=== PATIENT | female | born 1965 | race Caucasian/White ===

== ENCOUNTER → 2017-01-08 | Outpatient (CLI) | payer BC ==
[~2017-01-08] MED LIST: ASP325TEC PO; CETI10CA PO; CYAN1TAB50 SL; FOLI1TAB24 PO; FURO20TA4 PO; LOSA100T16 PO; MELO-195 PO
--- OUTSIDE RECORDS SUMMARY | 2017-01-08 14:02 | XMS REPORT | Continuity of Care Document ---
Author Author [facility] Organization [facility] Address Unknown Phone Unavailable Care Team Providers Care Web Application Developer Name Role Phone BINA UMANA MD PCP Insurance Providers Payer Name Policy Number Subscriber Name Relationship [facility] [id number] Lisa Dozier 17 Self / Same As Patient Advance Directives Directive Response Recorded Date/Time Advance Directives Yes 04/08/15 8:15am Health Care Power of Customer Advocacy Manager Yes 04/08/15 8:15am Organ Donor Yes 04/08/15 8:15am Resuscitation Status Full Code 04/08/15 8:15am Problems No known problems or medical conditions. Medications Medication Dose Route Sig Days/Qty Instructions Order Date Discontinued Date Status Folic Acid 1 Mg PO DAILY 04/08/15 Active Losartan Potassium 1 Each PO DAILY 04/08/15 Active Furosemide (Lasix) 1 Each PO DAILY 04/08/15 Active Cyanocobalamin/Folic Acid 1 Each SL DAILY 04/08/15 Active Aspirin 325 Mg PO DAILY 04/08/15 Active Meloxicam (Mobic) 15 Mg PO DAILY 04/08/15 Active Cetirizine Hcl 10 Mg PO DAILY 04/08/15 Active Social History Social History Problem Response Recorded Date/Time Recent Foreign Travel No 04/08/2015 8:14am Smoking Status Never a Smoker 04/08/2015 8:13am Do you dip or chew tobacco? No 04/08/2015 8:13am Query Response Start Date Stop Date Smoking Status Never a Smoker Hospital Discharge Instructions No hospital discharge instructions. Plan of Care No plan of care. Functional Status No functional status results. Allergies, Adverse Reactions, Alerts Allergen Type Severity Reaction Status Last Updated NKDA Allergy Unknown Active 04/08/15 Immunizations Name Given Type Date of Influenza Vaccine 09/08/14 Historical Vital Signs Acute Vital Signs Vital Response Date/Time Temperature (Fahrenheit) 98.1 degrees F (97.6 - 99.5) Temperature (Calculated Celsius) 36.95829 degrees C (36.4 - 37.5) Temperature Source Tympanic Pulse Rate (adult) 87 bpm (60 - 90) Respiratory Rate 18 bpm (12 - 24) O2 Sat by Pulse Oximetry 93 % (88 - 100) Blood Pressure 132/86 mm Hg Pain Pain Intensity 0 Height (Feet) 5 feet Height (Inches) 3.00 inches Height (Calculated Centimeters) 160.705245 cm Weight (Pounds) 215 pounds Weight (Calculated Grams) 16080.361 gm Weight (Calculated Kilograms) 97.233460 kilograms Height 5 ft 3 in Weight 215 lb Body Mass Index 38.1 kg/m^2 Results No known relevant diagnostic tests, laboratory data and/or discharge summary. Procedures Procedure Status Date Provider(s) Diagnostic colonoscopy completed 04/08/15 BUSHRA SABA MD Encounters Encounter Location Date/Time [facility]istered [facility] 04/08/15 7:04am Registered Clinic [facility] 04/06/15 5:46am
--- NOTE | 2017-01-10 19:03 | Diagnostic Imaging Report ---
Bilateral screening mammogram The current study was also evaluated with a Computer Aided Detection (CAD) system. INDICATION: Screening. No current complaints stated on the questionnaire. COMPARISON: 12/08/15. FINDINGS: The breasts are composed of scattered fibroglandular densities. There are scattered benign-appearing calcifications. Allowing for technique and positional differences, no suspicious change is seen. IMPRESSION: No significant change. ACR BI-RADS Category 2: Benign findings. Result letter will be mailed to the patient. Note: At least 10% of breast cancer is not imaged by mammography. Dictated by: Dictated on workstation # [id number]
== END ==
LOC: RAD 13:59
PROVIDERS: ATTEND Nurse Practitioner Family
DX: Z12.31 Encounter for screening mammogram for malignant neoplasm of breast (principal)
CPT/HCPCS: 77067

== ENCOUNTER → 2018-01-10 | Outpatient (CLI) | payer BC | LOC: RAD 07:32 | PROVIDERS: ATTEND Nurse Practitioner Family | DX: Z12.31 Encounter for screening mammogram for malignant neoplasm of breast (principal) ==

== ENCOUNTER → 2018-08-21 | Outpatient (CLI) | payer BC ==
[~2018-08-21] MED LIST changes: +ACHD5005 PO; +ASPI325T32 PO; +DOCU-143 PO; +FEXO180T84 PO; +LOSA100T8 PO; +OMEP20TA7 PO; +SPIR25TA5 PO
--- NOTE | 2018-08-21 11:52 | Diagnostic Imaging Report ---
PROCEDURE: US Gallbladder. TECHNIQUE: Multiple real-time grayscale images were obtained over the right upper quadrant in various projections. INDICATION: Right upper quadrant pain. COMPARISON: None available. FINDINGS: The liver has diffuse increased echogenicity indicative of hepatic steatosis. Well-circumscribed anechoic structure in the posterior right hepatic lobe measures 3.7 x 2.3 x 2.5 cm and likely represents a cyst. Main portal vein is patent with antegrade flow. The gallbladder is distended without gallstones, wall thickening, or pericholecystic fluid. The common bile duct is not visualized as it is obscured by overlying bowel gas. The visualized portions of the pancreas are normal. Portions of the head and tail are obscured by overlying bowel gas. The right kidney is normal in size. No hydronephrosis, shadowing calculi, or suspicious mass lesion. IMPRESSION: 1. No cholelithiasis or sonographic features of acute cholecystitis. 2. Diffuse hepatic steatosis. Dictated by: Dictated on workstation # [id number]
== END ==
LOC: RAD 10:47
PROVIDERS: ATTEND Family Medicine
DX: K76.0 Fatty (change of) liver, not elsewhere classified (principal)
CPT/HCPCS: 76705

== ENCOUNTER → 2018-08-22 | Outpatient (CLI) | payer BC ==
[~2018-08-22] MED LIST changes: +CATHETER FLUSH 10 ML SYR IV PRN
--- NOTE | 2018-08-22 17:29 | Diagnostic Imaging Report ---
EXAMINATION: Nuclear medicine hepatobiliary scan. INDICATION: Abdominal pain. TECHNIQUE: This study was performed following administration of 5.33 mCi of Choletec. Ensure was used to calculate the ejection fraction. COMPARISON: There are no previous nuclear medicine studies available for comparison. FINDINGS: The gallbladder ultrasound exam of 08/21/2018 failed to show any sign of acute cholecystitis. On this exam, there is uptake of the radiotracer by the gallbladder before 30 minutes. This would weigh against the diagnosis of acute cholecystitis. There is also extension of the radiotracer into the small bowel indicating that the common bile duct is not obstructed. The ejection fraction is 12% (normal greater than 35%). The reason for the diminished ejection fraction is not certain. The possibility of biliary dyskinesia should be considered. IMPRESSION: 1. There is no evidence for acute cholecystitis or for obstruction of the common bile duct. 2. However, the ejection fraction is only 12% and below normal limits. Dictated by: Dictated on workstation # [id number]
== END ==
LOC: CARD 13:06
PROVIDERS: ATTEND Surgery
DX: R10.11 Right upper quadrant pain (principal)
CPT/HCPCS: 78227

== ENCOUNTER 2018-08-28 05:32 | Outpatient (CLI) | payer BC ==
[~2018-08-28] VITALS: Ht 162.6 cm; Wt 108.4 kg
[~2018-08-28 05:32] MED LIST changes: -ACHD5005 PO; -ASPI325T32 PO; -CATHETER FLUSH 10 ML SYR IV PRN; -DOCU-143 PO; -FEXO180T84 PO; -LOSA100T8 PO; -OMEP20TA7 PO; -SPIR25TA5 PO
[2018-08-28] MEDS ORDERED: FURO20TA4 PO (14:28)
[2018-08-28] MEDS ORDERED: FOLI1TAB24 PO (14:28)
[2018-08-28] MEDS ORDERED: LOSA100T8 PO (14:28)
[2018-08-28] MEDS ORDERED: OMEP20TA7 PO (14:28)
[2018-08-28] MEDS ORDERED: ASPI325T32 PO (14:28)
[2018-08-28] MEDS ORDERED: FEXO180T84 PO (14:28)
[2018-08-28] MEDS ORDERED: SPIR25TA5 PO (14:28)
[2018-09-01] MEDS ORDERED: DOCU-143 PO (11:31)
[2018-09-01] MEDS ORDERED: ACHD5005 PO (11:31)
== END 2018-08-28 14:32 | disposition home or self-care (01) ==
LOC: PREOP 05:32
PROVIDERS: ATTEND Surgery
DX: Z01.818 Encounter for other preprocedural examination (principal)

== ENCOUNTER 2018-09-01 08:43 | Day surgery (SDC) | payer BC ==
[~2018-09-01] VITALS: Ht 162.6 cm; Wt 108.4 kg
[~2018-09-01 08:43] MED LIST changes: +ASPI325T32 PO; +FEXO180T84 PO; +LOSA100T8 PO; +OMEP20TA7 PO; +SPIR25TA5 PO
[2018-09-01 09:00] VITALS: BP 152/91
[2018-09-01] MEDS: LACTATED RINGERS 1,000 ML IV PRN ×2 (09:00→11:00)
[2018-09-01] MEDS ORDERED: SEVOFLURANE (ULTANE) 15 ML INHAL SOLN ONE ×2 (09:12→11:25)
[2018-09-01] MEDS ORDERED: proPOfol 200 MG/20 ML (DIPRIVAN) VIAL IV ONE (09:12)
[2018-09-01] MEDS ORDERED: ONDANSETRON 4 MG/2 ML (SDV) Z0FRAN ONE ×3 (09:12→11:53)
[2018-09-01] MEDS ORDERED: MIDAZOLAM 2 MG/2 ML (VERSED) VIAL ONE (09:12)
[2018-09-01] MEDS ORDERED: DEXAMETHASONE 10 MG/ML (DECADRON) 1 ML VIAL ONE (09:12)
[2018-09-01] MEDS ORDERED: ROCURONIUM 10 MG/ML 5 ML SYRINGE IV ONE (09:12)
[2018-09-01] MEDS ORDERED: fentaNYL INJECTION 100 MCG/2 ML AMP ONE (09:12)
[2018-09-01] MEDS ORDERED: LIDOCAINE PF 2% 2 ML (XYLOCAINE) VIAL ONE (09:14)
[2018-09-01 09:18] LABS: BASOPHILS % (AUTO) 0 % (0-10); EOSINOPHILS # (AUTO) 0.1 10^3/uL (0.0-0.3); EOSINOPHILS % (AUTO) 1 % (0-10); HEMATOCRIT 33 % (35-52); HEMOGLOBIN 10.7 G/DL (11.5-16.0); LYMPHOCYTES # (AUTO) 2.1 X 10^3 (1.0-4.0); LYMPHOCYTES % (AUTO) 30 % (12-44); MEAN CORPUSCULAR HEMOGLOBIN 20 PG (25-34); MEAN CORPUSCULAR HGB CONC 32 G/DL (32-36); MEAN CORPUSCULAR VOLUME 63 FL (80-99); MEAN PLATELET VOLUME 11.7 FL (7.4-10.4); MONOCYTES # (AUTO) 0.5 X 10^3 (0.0-1.0); MONOCYTES % (AUTO) 7 % (0-12); NEUTROPHILS # (AUTO) 4.3 X 10^3 (1.8-7.8); NEUTROPHILS % (AUTO) 61 % (42-75); PLATELET COUNT 317 10^3/uL (130-400); RED BLOOD COUNT 5.25 10^6/uL (4.35-5.85); RED CELL DISTRIBUTION WIDTH 17.1 % (10.0-14.5)
[2018-09-01] MEDS ORDERED: ceFAZolin 2 GM IV Premixed 50 ML IV ONE (09:30)
[2018-09-01] MEDS ORDERED: FAMOTIDINE 20MG/2ML IV (PEPCID) ONE (09:33)
[2018-09-01 09:34] LABS: BUN/CREATININE RATIO 15; CALCIUM 9.7 MG/DL (8.5-10.1); CARBON DIOXIDE 22 MMOL/L (21-32); CHLORIDE 106 MMOL/L (98-107); CREATININE SERUM 0.73 MG/DL (0.60-1.30); GFR ESTIMATED > 60; GLUCOSE 101 MG/DL (70-105); POTASSIUM 4.2 MMOL/L (3.6-5.0); SODIUM 138 MMOL/L (135-145)
[2018-09-01] MEDS ORDERED: CATHETER FLUSH 10 ML SYR IV PRN (09:45)
[2018-09-01] MEDS ORDERED: BUPIVACAINE 0.5% 30 ML (SENSORCAINE) VIAL ONE (09:54)
[2018-09-01] MEDS ORDERED: LIDOCAINE 1% INJ 20 ML 20 ML VIAL ONE (09:54)
--- NOTE | 2018-09-01 10:12 | Progress Note-Pre Operative ---
Pre-Operative Progress Note H&P Reviewed The H&P was reviewed, patient examined and no changes noted. Date Seen by Provider: Sep 01, 2018 Time Seen by Provider: 10:12 Date H&P Reviewed: Sep 01, 2018 Time H&P Reviewed: 10:12 Pre-Operative Diagnosis: ruq abdominal pain, biliary dyskinesia CARLOS RAMIREZ DO Sep 01, 2018 10:12
--- OUTSIDE RECORDS SUMMARY | 2018-09-01 10:36 | XMS REPORT | CCD ---
Author Author Beverly Valerio Organization [facility] Address [address] [place] [address] Phone Care Team Providers Care Network And Threat Support Specialist Name Role Phone PP Unavailable CCM Unavailable Summary Purpose Interface Exchange Insurance Providers Payer name Policy type / Coverage type Covered constitution party ID Effective Begin Date Effective End Date Blue Cross Blue [facility] Blue Cross/Blue [facility] [id number] Unknown Family history Mother Inocencia Frias Diagnosis Age At Onset Hyperlipidemia Unknown Sister Nichole Diagnosis Age At Onset Essential Tremors Unknown Brother Alvaro Mccormack Diagnosis Age At Onset Hypertension Unknown Father Alvaro Mccormack Diagnosis Age At Onset Hypertension Unknown Social History Social History Element Codes Description Effective Dates Marital status Unknown 03/07/2016 Number of children Unknown 1 10/31/2015 Living arrangements Unknown House 10/31/[address]: 545694728 Never smoker 10/31/[address]: 429852 Currently drinks alcohol Glass of wine a couple times a month 10/31/2015 Allergies, Adverse Reactions, Alerts Substance Reaction Codes Entered Date Inactivated Date Status BE INHIBITORS cough Unknown 06/20/2015 No Inactive Date Active Past Medical History Illness Codes Condition Status Onset Date Resolved Date Gastro-esophageal reflux disease without esophagitis ICD-9: 530.81 ICD-10: K21.9 Active 08/27/2017 Unknown Other allergic rhinitis ICD-9: 477.8 ICD-10: J30.89 Active 02/06/2017 Unknown Cough ICD-9: 786.2 ICD-10: R05 Active 02/06/2017 Unknown Anemia, unspecified ICD-9: 285.9 ICD-10: D64.9 Active 03/19/2016 Unknown Essential (primary) hypertension ICD-9: 401.9 ICD-10: I10 Active 06/19/2015 Unknown Morbid (severe) obesity due to excess calories ICD-9: 278.01 ICD-10: E66.01 Active 03/06/2016 Unknown EDEMA ICD-9: 782.3 Active 07/18/2015 Unknown ESSENTIAL HYPERTENSION ICD-9: 401.9 Active 06/19/2015 Unknown GERD (gastroesophageal reflux disease) ICD-9: 530.81 Active Unknown Hypertension Unknown Active 06/20/2015 Unknown Problems Condition Codes Effective Dates Condition Status Gastro-esophageal reflux disease without esophagitis ICD-9: 530.81 ICD-10: K21.9 08/27/2017 Active Other allergic rhinitis ICD-9: 477.8 ICD-10: J30.89 02/06/2017 Active Cough ICD-9: 786.2 ICD-10: R05 02/06/2017 Active Anemia, unspecified ICD-9: 285.9 ICD-10: D64.9 03/19/2016 Active Essential (primary) hypertension ICD-9: 401.9 ICD-10: I10 06/19/2015 Active Morbid (severe) obesity due to excess calories ICD-9: 278.01 ICD-10: E66.01 03/06/2016 Active EDEMA ICD-9: 782.3 07/18/2015 Active ESSENTIAL HYPERTENSION ICD-9: 401.9 06/19/2015 Active GERD (gastroesophageal reflux disease) ICD-9: 530.81 06/19/2015 Active Hypertension Unknown 06/20/2015 Active Medications Medication Codes Instructions Start Date Stop Date Status Fill Instructions losartan 100 mg tablet RxNorm: 479853 Tablet(s) TAKE ONE (1) TABLET BY MOUTH DAILY 12/25/2017 09/20/2018 Active furosemide 20 mg tablet RxNorm: 797173 TAKE ONE TABLET BY MOUTH EVERY DAY NEEDED 12/03/2017 11/27/2018 Active Generic For:LASIX 20 MG TABLET 12/03/2017 8:37 :25 AM spironolactone 25 mg tablet RxNorm: 581165 TAKE 1 TABLET BY MOUTH EVERY MORNING 10/17/2017 05/14/2018 Active Generic For:ALDACTONE 25 MG TABLET N O T I C E Last quantity doesn't match original quantity omeprazole 20 mg tablet,delayed release RxNorm: 928700 1 Tablet(s) PO QPM 08/27/2017 03/24/2018 Active Kenalog 40 mg/mL suspension for injection RxNorm: 5048963 1 Milliliter(s) Inj 08/27/2017 08/27/2017 Inactive losartan 100 mg tablet RxNorm: 653368 Tablet(s) TAKE ONE (1) TABLET BY MOUTH DAILY 06/24/2017 12/20/2017 Inactive spironolactone 25 mg tablet RxNorm: 605290 Tablet(s) TAKE ONE TABLET BY MOUTH EVERY MORNING 04/11/2017 10/17/2017 Inactive furosemide 20 mg tablet RxNorm: 073890 TAKE ONE TABLET BY MOUTH EVERY DAY NEEDED 03/20/2017 12/02/2017 Inactive Generic For:LASIX 20 MG TABLET 03/20/2017 10 :49:21 AM folic acid 1 mg tablet RxNorm: 168745 1 Tablet(s) PO daily 03/201702/27/2018 Active folic acid 1 mg tablet RxNorm: 806220 1 Tablet(s) PO daily 01/201702/26/2018 Active Tessalon Perles 100 mg capsule RxNorm: 644795 1-2 Capsule(s) PO TID PRN as needed 02/20/2017 03/01/2017 Inactive Tessalon Perles 100 mg capsule RxNorm: 467363 1-2 Capsule(s) PO TID PRN as needed 02/15/2017 02/19/2017 Inactive cetirizine 10 mg tablet RxNorm: 2357196 1 Tablet(s) PO daily 06/05/2017 Inactive Kenalog 40 mg/mL suspension for injection RxNorm: 1812613 Milliliter(s) Inj 02/06/2017 02/06/2017 Inactive Zithromax Z-Clarence 250 mg tablet RxNorm: 312462 1 Tablet(s) PO UD 02/06/2017 04/10/2017 Inactive Tessalon Perles 100 mg capsule RxNorm: 598162 2 Capsule(s) PO TID as needed 02/06/2017 02/10/2017 Inactive cetirizine 10 mg tablet RxNorm: 8346633 1 Tablet(s) PO daily 02/05/2017 Inactive Premarin 0.625 mg/gram vaginal cream RxNorm: 725823 1 Application VAG BIW 01/15/2017 06/13/2017 Inactive Premarin 0.625 mg/gram vaginal cream RxNorm: 612905 1 Application VAG BIW 01/15/2017 06/13/2017 Inactive spironolactone 25 mg tablet RxNorm: 690492 Tablet(s) TAKE ONE TABLET BY MOUTH EVERY MORNING 12/11/2016 06/08/2017 Inactive Please fill 90 day supply for next refills spironolactone 25 mg tablet RxNorm: 688088 Tablet(s) TAKE ONE TABLET BY MOUTH EVERY MORNING 12/11/2016 12/10/2016 Inactive losartan 100 mg tablet RxNorm: 377042 Tablet(s) TAKE ONE (1) TABLET BY MOUTH DAILY 12/11/2016 06/08/2017 Inactive meloxicam 15 mg tablet RxNorm: 574504 1 Tablet(s) PO daily 11/201605/10/2017 Inactive meloxicam 15 mg tablet RxNorm: 448714 1 Tablet(s) PO daily 11/201611/11/2016 Inactive spironolactone 25 mg tablet RxNorm: 161349 TAKE ONE TABLET BY MOUTH EVERY MORNING 09/17/2016 12/10/2016 Inactive Generic For:ALDACTONE 25 MG TABLET 09/17/2016 3:10: 44 PM furosemide 20 mg tablet RxNorm: 410162 TAKE ONE TABLET BY MOUTH EVERY DAY NEEDED 06/15/2016 03/11/2017 Inactive Generic For:LASIX 20 MG TABLET 06/15/2016 4: 41:48 PM folic acid 1 mg tablet RxNorm: 894794 1 Tablet(s) PO daily 02/22/2017 Inactive spironolactone 25 mg tablet RxNorm: 582886 1 Tablet(s) PO QAM 02/08/2016 09/04/2016 Inactive losartan 100 mg tablet RxNorm: 538790 TAKE ONE (1) TABLET BY MOUTH DAILY 12/29/2015 12/10/2016 Inactive Generic For:COZAAR 100MG TAB 12/28/2015 8:39:35 AM N O T I C E PRESCRIPTION PREVIOUSLY AUTHORIZED BY DOCTOR:NIKOLAS KAUR furosemide 20 mg tablet RxNorm: 758960 TAKE ONE TABLET BY MOUTH EVERY DAY NEEDED 09/12/2015 06/07/2016 Inactive Generic For:LASIX 20 MG TABLET 09/12/2015 8: 35:33 AM N O T I C E PRESCRIPTION PREVIOUSLY AUTHORIZED BY DOCTOR:NIKOLAS KAUR Premarin 0.625 mg/gram vaginal cream RxNorm: 701450 1 Application VAG BIW 08/16/2015 08/15/2015 Inactive Premarin 0.625 mg/gram vaginal cream RxNorm: 935381 1 Application VAG BIW 08/16/2015 01/12/2016 Inactive spironolactone 25 mg tablet RxNorm: 581873 1 Tablet(s) PO QAM 07/19/2015 02/07/2016 Inactive omeprazole 20 mg tablet,delayed release RxNorm: 088000 1 Tablet(s) PO QPM 07/19/2015 10/30/2015 Inactive omeprazole 20 mg tablet,delayed release RxNorm: 040711 1 Tablet(s) PO daily 06/20/2015 07/18/2015 Inactive furosemide 20 mg tablet RxNorm: 281665 1 Tablet(s) PO daily 07/19/2015 Inactive Carafate 1 gram tablet RxNorm: 752516 1 Tablet(s) PO AC & HS 08/15/2015 Inactive dissolve in water and take as a slurry Carafate 1 gram tablet RxNorm: 520437 1 Tablet(s) PO AC & HS 06/16/2015 Inactive dissolve in water and take as a slurry aspirin 325 mg tablet RxNorm: 505813 1 Tablet(s) PO daily No Start Date Active losartan 100 mg tablet RxNorm: 060788 1 Tablet(s) PO daily No Start Date 12/28/2015 Inactive meloxicam oral RxNorm : 50445 oral No Start Date 11/12/2016 Inactive Medication Administered Medication Codes Instructions Start Date Status Kenalog 40 mg/mL suspension for injection RxNorm: 7725119 1Milliliter 08/27/2017 No longer Active Kenalog 40 mg/mL suspension for injection RxNorm: 2522047 Milliliter 02/06/2017 No longer Active Immunizations Vaccine Codes Date Status Influenza CVX: 141 09/13/2017 completed Assessments Condition Codes Effective Dates Gastro-esophageal reflux disease without esophagitis ICD-10 : K21.9 ICD-9: 530.81 08/27/2017 Other allergic rhinitis ICD-10: J30.89 ICD-9: 477.8 08/27/2017 Cough ICD-10: R05 ICD-9: 786.2 02/06/2017 Anemia, unspecified ICD-10: D64.9 ICD-9: 285.9 03/20/2016 Morbid (severe) obesity due to excess calories ICD-10: E66.01 ICD-9: 278.01 03/07/2016 Essential (primary) hypertension ICD-10: I10 ICD-9: 401.9 03/07/2016 GERD (gastroesophageal reflux disease) ICD-9: 530.81 07/19/2015 EDEMA ICD-9: 782.3 07/19/2015 ESSENTIAL HYPERTENSION ICD-9: 401.9 07/19 Reason For Visit Reason For Visit Effective Dates Notes nasal allergies 08/27/2017 sinus congestion 02/06/2017 hypertension 03/07/2016 hypertension 10/31/2015 abdominal pain 07/19/2015 abdominal pain 06/20/2015 Results Observation Observation Code Item Item Code Result Date Ferritin Ord22 FERRITIN 142.5 ng/mL 03/28/2016 Tibc Ord40 Iron 78 ug/dl 03/28/2016 Tibc Ord40 UIBC 306 ug/dL 03/28/2016 Tibc Ord40 TIBC 384 ug/dL 03/28/2016 Tibc Ord40 Fe-%Sat 20.3 % 03/28/2016 Comp Metabolic Hhm196 NA 135 mEq/L 03/08/2016 Comp Metabolic Mzy262 K 4.2 mEq/L 03/08/2016 Comp Metabolic Uii804 CL 101 mEq/L 03/08/2016 Comp Metabolic Qme400 CO2 24.0 mEq/L 03/08/2016 Comp Metabolic Xxu573 ANION GAP 14 03/08/2016 Comp Metabolic Vzd395 GLUCOSE 90 mg/dL 03/08/2016 Comp Metabolic Wmt643 Creat 0.7 mg/dL 03/08/2016 Comp Metabolic Hvu398 eGFR 100 ml/min/1.73m2 03/08/2016 Comp Metabolic Boz472 BUN 14 mg/dL 03/08/2016 Comp Metabolic Zoy085 B/C Ratio 21.2 Ratio 03/08/2016 Comp Metabolic Enm001 CALCIUM 9.8 mg/dL 03/08/2016 Comp Metabolic Fhe469 ALK PHOS 57 U/L 03/08/2016 Comp Metabolic Ilr111 AST(SGOT) 12 U/L 03/08/2016 Comp Metabolic Eez928 ALT(SGPT) 14 U/L 03/08/2016 Comp Metabolic Ine436 BILI T 0.4 mg/dL 03/08/2016 Comp Metabolic Kti324 ALBUMIN 4.3 g/dL 03/08/2016 Comp Metabolic Ypn745 TPRO 7.2 g/dL 03/08/2016 Comp Metabolic Bjt407 GLOB 2.9 g/dL 03/08/2016 Comp Metabolic Lgj015 A/G Ratio 1.5 Ratio 03/08/2016 Comp Metabolic Jpf437 Osmo 270 mOsmo 03/08/2016 Lipid Ord30 CHOL 258 mg/dL 03/08/2016 Lipid Ord30 HDL 50.0 mg/dl 03/08/2016 Lipid Ord30 TRIG 209 mg/dL 03/08/2016 Lipid Ord30 LDL 166 mg/dL 03/08/2016 Lipid Ord30 C/HDL 5.2 Ratio 03/08/2016 Tsh Ord6 hTSH II 0.86 uIU/mL 03/07/2016 Cbc With Differential Ord2 WBC 7.20 K/ul 03/07/2016 Cbc With Differential Ord2 RBC 5.07 M/ul 03/07/2016 Cbc With Differential Ord2 HGB 10.4 g/dl 03/07/2016 Cbc With Differential Ord2 HCT 32.1 % 03/07/2016 Cbc With Differential Ord2 Neut% 60.9 % 03/07/2016 Cbc With Differential Ord2 Lymph% 30.8 % 03/07/2016 Cbc With Differential Ord2 MCV 63.3 fl 03/07/2016 Cbc With Differential Ord2 Cecil% 7.2 % 03/07/2016 Cbc With Differential Ord2 MCH 20.5 pg 03/07/2016 Cbc With Differential Ord2 MCHC 32.4 pg 03/07/2016 Cbc With Differential Ord2 Eos% 1.0 % 03/07/2016 Cbc With Differential Ord2 Baso% 0.1 % 03/07/2016 Cbc With Differential Ord2 PLT 302 K/ul 03/07/2016 Cbc With Differential Ord2 Neut ABS# 4.38 K/ul 03/07/2016 Cbc With Differential Ord2 RDW 18.1 % 03/07/2016 Cbc With Differential Ord2 Lymph ABS# 2.22 K/ul 03/07/2016 Cbc With Differential Ord2 Cecil ABS# 0.5 K/ul 03/07/2016 Cbc With Differential Ord2 Eos ABS# 0.1 K/ul 03/07/2016 Cbc With Differential Ord2 Baso ABS# 0.0 K/ul 03/07/2016 Cbc With Differential Ord2 New Analyzer Notice Please note new ref ranges starting 12-14-2015 due to implemntation of new five part differential hematolgy analyzer. 03/07/2016 Review of Systems System Result Effective Dates Constitutional recent illness 08/27/2017 Constitutional No chills 08/27/2017 Constitutional No diaphoresis 08/27/2017 Constitutional No fever 08/27/2017 Eyes No blindness 08/27/2017 Ears/Nose/Throat/Neck nasal allergies Ears/Nose/Throat/Neck nasal discharge Ears/Nose/Throat/Neck postnasal drip Ears/Nose/Throat/Neck No sore throat Cardiovascular No chest pain/pressure Cardiovascular No dyspnea 08/27/2017 Respiratory No chest congestion 2016 Respiratory cough 08/27/2017 Respiratory No dyspnea 08/27/2017 Gastrointestinal No constipation 2016 Gastrointestinal No diarrhea 08/27/2017 Gastrointestinal No nausea 08/27/2017 Gastrointestinal No vomiting 08/27/2017 Dermatologic No rash 08/27/2017 Neurologic No alteration of consciousness 08/27/2017 Neurologic No mental status change 2016 Constitutional No anorexia 08/27/2017 Constitutional No night sweats 2016 Gastrointestinal gastroesophageal reflux 08/27/2017 Constitutional recent illness 02/06/2017 Constitutional No chills 02/06/2017 Constitutional No diaphoresis 02/06/2017 Constitutional No fever 02/06/2017 Eyes No eye erythema 02/06/2017 Ears/Nose/Throat/Neck nasal allergies 07/2017 Ears/Nose/Throat/Neck nasal discharge 07/2017 Ears/Nose/Throat/Neck postnasal drip 07/2017 Ears/Nose/Throat/Neck sore throat 2016 Cardiovascular No chest pain/pressure 07/2017 Cardiovascular No dyspnea 02/06/2017 Respiratory No chest congestion 2016 Respiratory cough 02/06/2017 Respiratory No dyspnea 02/06/2017 Gastrointestinal No constipation 2016 Gastrointestinal No diarrhea 02/06/2017 Gastrointestinal No nausea 02/06/2017 Gastrointestinal No vomiting 02/06/2017 Dermatologic No rash 02/06/2017 Neurologic No alteration of consciousness 02/06/2017 Neurologic No mental status change 2016 Constitutional No recent illness 2015 Constitutional No chills 03/07/2016 Constitutional No fatigue 03/07/2016 Constitutional No fever 03/07/2016 Cardiovascular No chest pain/pressure 05/2016 Cardiovascular No near-syncope/dizziness 03/07/2016 Cardiovascular No palpitations 2015 Respiratory No chest congestion 2015 Respiratory No cough 03/07/2016 Gastrointestinal No abdominal pain 2015 Musculoskeletal No stiffness 03/07/2016 Musculoskeletal No swelling 03/07/2016 Musculoskeletal No muscle weakness 2015 Musculoskeletal No myalgias 03/07/2016 Psychiatric No anxiety 03/07/2016 Psychiatric No depression 03/07/2016 Ears/Nose/Throat/Neck No dizziness 2015 Ears/Nose/Throat/Neck No headache 2015 Gastrointestinal No constipation 2015 Gastrointestinal No diarrhea 03/07/2016 Gastrointestinal No nausea 03/07/2016 Gastrointestinal No vomiting 03/07/2016 Genitourinary/Nephrology No dysuria 03/07 Dermatologic No rash 03/07/2016 Dermatologic No scar 03/07/2016 Neurologic No alteration of consciousness 03/07/2016 Eyes No blindness 03/07/2016 Eyes No vision change 03/07/2016 Constitutional No recent illness 2014 Constitutional No chills 10/31/2015 Constitutional No fatigue 10/31/2015 Constitutional No fever 10/31/2015 Cardiovascular No chest pain/pressure Cardiovascular No near-syncope/dizziness 10/31/2015 Cardiovascular No palpitations 2014 Respiratory No chest congestion 2014 Respiratory No cough 10/31/2015 Musculoskeletal No stiffness 10/31/2015 Musculoskeletal No swelling 10/31/2015 Musculoskeletal No muscle weakness 2014 Musculoskeletal No myalgias 10/31/2015 Psychiatric No anxiety 10/31/2015 Psychiatric No depression 10/31/2015 Gastrointestinal No abdominal pain 2014 Constitutional No chills 07/19/2015 Constitutional No fatigue 07/19/2015 Constitutional No fever 07/19/2015 Constitutional No recent illness 2014 Ears/Nose/Throat/Neck No dizziness 2014 Ears/Nose/Throat/Neck No headache 2014 Cardiovascular No chest pain/pressure Cardiovascular No near-syncope/dizziness 07/19/2015 Cardiovascular No palpitations 2014 Respiratory No chest congestion 2014 Respiratory No cough 07/19/2015 Gastrointestinal No abdominal pain 2014 Gastrointestinal No constipation 2014 Gastrointestinal No diarrhea 07/19/2015 Gastrointestinal No nausea 07/19/2015 Gastrointestinal No vomiting 07/19/2015 Genitourinary/Nephrology No dysuria 07/19 Neurologic No alteration of consciousness 07/19/2015 Psychiatric No anxiety 07/19/2015 Psychiatric No depression 07/19/2015 Musculoskeletal No stiffness 07/19/2015 Musculoskeletal No swelling 07/19/2015 Musculoskeletal No muscle weakness 2014 Musculoskeletal No myalgias 07/19/2015 Dermatologic No rash 07/19/2015 Dermatologic No scar 07/19/2015 Constitutional No recent illness 2014 Constitutional No anorexia 06/20/2015 Constitutional night sweats 06/20/2015 Constitutional No chills 06/20/2015 Constitutional No diaphoresis 06/20/2015 Constitutional No insomnia 06/20/2015 Eyes No vision change 06/20/2015 Eyes No eye discharge 06/20/2015 Eyes No photophobia 06/20/2015 Ears/Nose/Throat/Neck No dizziness 2014 Ears/Nose/Throat/Neck No headache 2014 Ears/Nose/Throat/Neck No hoarseness 06/20 Ears/Nose/Throat/Neck No nasal allergies 06/20/2015 Ears/Nose/Throat/Neck No nasal discharge 06/20/2015 Ears/Nose/Throat/Neck No otalgia 2014 Ears/Nose/Throat/Neck No sinus congestion 06/20/2015 Eyes cataract 06/20/2015 Cardiovascular No chest pain/pressure Cardiovascular No dyspnea 06/20/2015 Respiratory No chest congestion 2014 Respiratory No chest tightness 2014 Respiratory No cough 06/20/2015 Respiratory No cigarette smoking 2014 Gastrointestinal abdominal pain 2014 Gastrointestinal No constipation 2014 Gastrointestinal No diarrhea 06/20/2015 Genitourinary/Nephrology No dysuria 06/20 Genitourinary/Nephrology No hematuria Musculoskeletal back pain 06/20/2015 Musculoskeletal stiffness 06/20/2015 Musculoskeletal swelling 06/20/2015 Dermatologic No rash 06/20/2015 Dermatologic No sores 06/20/2015 Neurologic No dizziness 06/20/2015 Psychiatric No anxiety 06/20/2015 Psychiatric No depression 06/20/2015 Physical Exam Exam Name System Name Item Name Status Result Effective Dates Notes Full Exam - ENT Constitutional general appearance Overall: well nourished 08/27/2017 None Full Exam - ENT Constitutional general appearance Overall: well developed 08/27/2017 None Full Exam - ENT Constitutional general appearance Overall: in no acute distress 08/27/2017 None Full Exam - ENT Ears/Nose/Throat otoscopic exam Overall: external auditory canals normal 08/27/2017 None Full Exam - ENT Ears/Nose/Throat lips/ teeth/gingiva Overall: benign lips 08/27/2017 None Full Exam - ENT Ears/Nose/Throat oropharynx Overall: oral mucosa clear 08/27/2017 None Full Exam - ENT Ears/Nose/Throat oropharynx Posterior Pharynx: clear post nasal drainage 08/27/2017 None Full Exam - ENT Respiratory inspection Overall: no retractions 08/27/2017 None Full Exam - ENT Respiratory inspection Overall: normal rate None Full Exam - ENT Respiratory auscultation Overall: breath sounds clear bilaterally 08/27/2017 None Full Exam - ENT Cardiovascular auscultation of heart Rate: normal rate 08/27/2017 None Full Exam - ENT Cardiovascular auscultation of heart Rhythm: regular rhythm 08/27/2017 None Full Exam - ENT Lymphatic palpation of lymph nodes Overall: anterior cervical chain benign 08/27/2017 None Full Exam - ENT Lymphatic palpation of lymph nodes Overall: posterior cervical chain benign 08/27/2017 None Full Exam - ENT Neurologic mood and affect Overall: normal mood 08/27/2017 None Full Exam - ENT Neurologic mood and affect Overall: normal affect 08/27/2017 None Full Exam - ENT Neurologic orientation Overall: oriented to person, place and time 08/27/2017 None Full Exam - ENT Ears/Nose/Throat otoscopic exam Left tympanic membrane: air -fluid level 08/27/2017 None Full Exam - ENT Ears/Nose/Throat otoscopic exam Right tympanic membrane: air-fluid level 08/27/2017 None Full Exam - ENT Constitutional general appearance Overall: well nourished 02/06/2017 None Full Exam - ENT Constitutional general appearance Overall: well developed 02/06/2017 None Full Exam - ENT Constitutional general appearance Overall: in no acute distress 02/06/2017 None Full Exam - ENT Ears/Nose/Throat otoscopic exam Overall: external auditory canals normal 02/06/2017 None Full Exam - ENT Ears/Nose/Throat lips/ teeth/gingiva Overall: benign lips 02/06/2017 None Full Exam - ENT Ears/Nose/Throat oropharynx Overall: oral mucosa clear 02/06/2017 None Full Exam - ENT Ears/Nose/Throat oropharynx Posterior Pharynx: clear post nasal drainage 02/06/2017 None Full Exam - ENT Respiratory inspection Overall: no retractions 02/06/2017 None Full Exam - ENT Respiratory inspection Overall: normal rate 07/2017 None Full Exam - ENT Respiratory auscultation Overall: breath sounds clear bilaterally 02/06/2017 None Full Exam - ENT Cardiovascular auscultation of heart Rate: normal rate 02/06/2017 None Full Exam - ENT Cardiovascular auscultation of heart Rhythm: regular rhythm 02/06/2017 None Full Exam - ENT Lymphatic palpation of lymph nodes Overall: anterior cervical chain benign 02/06/2017 None Full Exam - ENT Lymphatic palpation of lymph nodes Overall: posterior cervical chain benign 02/06/2017 None Full Exam - ENT Neurologic mood and affect Overall: normal mood 02/06/2017 None Full Exam - ENT Neurologic mood and affect Overall: normal affect 02/06/2017 None Full Exam - ENT Neurologic orientation Overall: oriented to person, place and time 02/06/2017 None Full Exam - ENT Ears/Nose/Throat otoscopic exam Overall: tympanic membranes normal 02/06/2017 None Full Exam - General 1994 Constitutional general appearance Development: appears stated age 0403/07/2016 None Full Exam - General 1994 Constitutional general appearance Development: well developed 03/07/2016 None Full Exam - General 1994 Constitutional general appearance Hygiene/Attention to Grooming: good hygiene 03/07/2016 None Full Exam - General 1994 Eyes conjunctiva /eyelids Overall: conjunctiva clear 03/07/2016 None Full Exam - General 1994 Eyes conjunctiva /eyelids Overall: cornea clear 03/07/2016 None Full Exam - General 1994 Eyes conjunctiva /eyelids Overall: eyelids normal 03/07/2016 None Full Exam - General 1994 Eyes pupils and irises Overall: pupils equal, round, reactive to light and accomodation 03/07/2016 None Full Exam - General 1994 Ears/Nose/Throat otoscopic exam Overall: external auditory canals clear 03/07/2016 None Full Exam - General 1994 Ears/Nose/Throat otoscopic exam Overall: tympanic membranes clear 03/07/2016 None Full Exam - General 1994 Ears/Nose/Throat lips/teeth/gingiva Overall: benign lips 03/07/2016 None Full Exam - General 1994 Ears/Nose/Throat lips/teeth/gingiva Overall: normal dentition 03/07/2016 None Full Exam - General 1994 Ears/Nose/Throat oral cavity/pharynx/larynx Overall: hypopharynx benign 03/07/2016 None Full Exam - General 1994 Ears/Nose/Throat oral cavity/pharynx/larynx Overall: no masses 03/07/2016 None Full Exam - General 1994 Ears/Nose/Throat oral cavity/pharynx/larynx Overall: oral mucosa clear 03/07/2016 None Full Exam - General 1994 Ears/Nose/Throat oral cavity/pharynx/larynx Overall: oropharyngeal mucosa clear 03/07/2016 None Full Exam - General 1994 Respiratory auscultation Overall: breath sounds clear bilaterally 03/07/2016 None Full Exam - General 1994 Respiratory respiratory effort/rhythm Overall: no retractions 03/07/2016 None Full Exam - General 1994 Respiratory respiratory effort/rhythm Overall: normal rate 03/07/2016 None Full Exam - General 1994 Cardiovascular extremities Overall: no clubbing 03/07/2016 None Full Exam - General 1994 Cardiovascular auscultation of heart Overall: normal heart sounds 03/07/2016 None Full Exam - General 1994 Cardiovascular auscultation of heart Overall: regular rate 03/07/2016 None Full Exam - General 1994 Abdomen abdominal exam Overall: no tenderness 03/07/2016 None Full Exam - General 1994 Abdomen abdominal exam Overall: normal bowel sounds 03/07/2016 None Full Exam - General 1994 Integument inspection of skin Overall: few scattered moles, no gross abnormalities 03/07/2016 None Full Exam - General 1994 Neurologic deep tendon reflexes Overall: deep tendon reflexes intact 03/07/2016 None Full Exam - General 1994 Neurologic cranial nerves Overall: crainial nerves 2 - 12 grossly intact 03/07/2016 None Full Exam - General 1994 Psychiatric orientation/consciousness Overall: oriented to person, place and time 03/07/2016 None Full Exam - General 1994 Psychiatric mood and affect Overall: normal mood and affect 03/07/2016 None Full Exam - General 1994 Lymphatic neck nodes Overall: anterior cervical chain benign 03/07/2016 None Full Exam - General 1994 Lymphatic neck nodes Overall: posterior cervical chain benign 03/07/2016 None Full Exam - General 1994 Constitutional general appearance Development: appears stated age 1110/31/2015 None Full Exam - General 1994 Constitutional general appearance Development: well developed 10/31/2015 None Full Exam - General 1994 Constitutional general appearance Hygiene/Attention to Grooming: good hygiene 10/31/2015 None Full Exam - General 1994 Eyes pupils and irises Overall: pupils equal, round, reactive to light and accomodation 10/31/2015 None Full Exam - General 1994 Ears/Nose/Throat oral cavity/pharynx/larynx Overall: oral mucosa clear 10/31/2015 None Full Exam - General 1994 Ears/Nose/Throat oral cavity/pharynx/larynx Overall: oropharyngeal mucosa clear 10/31/2015 None Full Exam - General 1994 Respiratory auscultation Overall: breath sounds clear bilaterally 10/31/2015 None Full Exam - General 1994 Respiratory respiratory effort/rhythm Overall: no retractions 10/31/2015 None Full Exam - General 1994 Respiratory respiratory effort/rhythm Overall: normal rate 10/31/2015 None Full Exam - General 1994 Cardiovascular extremities Overall: no clubbing 10/31/2015 None Full Exam - General 1994 Cardiovascular auscultation of heart Overall: normal heart sounds 10/31/2015 None Full Exam - General 1994 Cardiovascular auscultation of heart Overall: regular rate 10/31/2015 None Full Exam - General 1994 Psychiatric orientation/consciousness Overall: oriented to person, place and time 10/31/2015 None Full Exam - General 1994 Psychiatric mood and affect Overall: normal mood and affect 10/31/2015 None Full Exam - Cardiology Constitutional general appearance Overall: well nourished 07/19/2015 None Full Exam - Cardiology Constitutional general appearance Overall: well developed 07/19/2015 None Full Exam - Cardiology Constitutional general appearance Overall: in no acute distress 07/19/2015 None Full Exam - Cardiology Eyes conjunctiva/ eyelids Overall: conjunctiva clear 07/19/2015 None Full Exam - Cardiology Ears/Nose/Throat oral mucosa Overall: oral mucosa clear 07/19/2015 None Full Exam - Cardiology Respiratory respiratory effort/rhythm Overall: no retractions 07/19/2015 None Full Exam - Cardiology Respiratory respiratory effort/rhythm Overall: normal rate 07/19/2015 None Full Exam - Cardiology Respiratory auscultation Overall: breath sounds clear bilaterally 07/19/2015 None Full Exam - Cardiology Cardiovascular auscultation of heart Overall: regular rate 07/19/2015 None Full Exam - Cardiology Cardiovascular auscultation of heart Overall: normal heart sounds 07/19/2015 None Full Exam - Cardiology Cardiovascular auscultation of heart Overall: no murmurs 07/19/2015 None Full Exam - Cardiology Cardiovascular extremities Overall: without clubbing, cyanosis, or edema 07/19/2015 None Full Exam - Cardiology Abdomen abdominal exam Overall: normal bowel sounds 07/19/2015 None Full Exam - Cardiology Neurologic deep tendon reflexes Overall: deep tendon reflexes intact 07/19/2015 None Full Exam - Cardiology Neurologic cranial nerves Overall: cranial nerves 1- 12 intact 07/19/2015 None Full Exam - Cardiology Psychiatric orientation/consciousness Overall: oriented to person, place and time 07/19/2015 None Full Exam - Cardiology Musculoskeletal back Overall: good posture 07/19/2015 None Full Exam - Cardiology Musculoskeletal back Overall: spine benign 07/19/2015 None Full Exam - Cardiology Integument inspection/palpation Overall: no rash, lesions 07/19/2015 None Full Exam - General 1994 Psychiatric orientation/consciousness Overall: oriented to person, place and time 06/20/2015 None Full Exam - General 1994 Psychiatric mood and affect Overall: normal mood and affect 06/20/2015 None Full Exam - General 1994 Psychiatric appearance Overall: well-groomed, good eye contact 06/20/2015 None Full Exam - General 1994 Psychiatric speech Overall: normal quality, no aphasia 06/20/2015 None Full Exam - General 1994 Neurologic gait Overall: no ataxia, no unsteadiness 06/20/2015 None Full Exam - General 1994 Neurologic coordination Overall: no tremors 06/20/2015 None Full Exam - General 1994 Neurologic motor Overall: normal bulk, tone 06/20/2015 None Full Exam - General 1994 Integument inspection of skin Overall: no rash, lesions 06/20/2015 None Full Exam - General 1994 Integument inspection of skin Overall: few scattered moles, no gross abnormalities 06/20/2015 None Full Exam - General 1994 Musculoskeletal head and neck Overall: head atraumatic 06/20/2015 None Full Exam - General 1994 Musculoskeletal head and neck Overall: TMJ benign 06/20/2015 None Full Exam - General 1994 Musculoskeletal head and neck Overall: cervical spine benign 06/20/2015 None Full Exam - General 1994 Musculoskeletal gait and station Overall: normal gait 06/20/2015 None Full Exam - General 1994 Musculoskeletal gait and station Overall: normal station 06/20/2015 None Full Exam - General 1994 Musculoskeletal digits and nails Nails: a normal exam 06/20/2015 None Full Exam - General 1994 Musculoskeletal upper extremity Overall: normal shoulder 06/20/2015 None Full Exam - General 1994 Musculoskeletal upper extremity Overall: normal elbow 06/20/2015 None Full Exam - General 1994 Musculoskeletal upper extremity Overall: normal wrist 06/20/2015 None Full Exam - General 1994 Musculoskeletal lower extremity Overall: knee benign 06/20/2015 None Full Exam - General 1994 Musculoskeletal lower extremity Overall: ankle benign 06/20/2015 None Full Exam - General 1994 Musculoskeletal lower extremity Overall: foot benign 06/20/2015 None Full Exam - General 1994 Musculoskeletal spine, ribs and pelvis Overall: good posture 06/20/2015 None Full Exam - General 1994 Lymphatic neck nodes Overall: anterior cervical chain benign 06/20/2015 None Full Exam - General 1994 Lymphatic neck nodes Overall: posterior cervical chain benign 06/20/2015 None Full Exam - General 1994 Abdomen abdominal exam Overall: normal bowel sounds 06/20/2015 None Full Exam - General 1994 Abdomen abdominal exam Percussion: a normal exam 06/20/2015 None Full Exam - General 1994 Abdomen abdominal exam Epigastric: tender to palpation 06/20/2015 None Full Exam - General 1994 Abdomen abdominal exam Upper quadrant: non-tender to palpation 06/20/2015 None Full Exam - General 1994 Abdomen abdominal exam Lower quadrant: non-tender to palpation 06/20/2015 None Full Exam - General 1994 Abdomen abdominal exam Suprapubic: non-tender to palpation 06/20/2015 None Full Exam - General 1994 Abdomen abdominal exam Periumbilical: non-tender to palpation 06/20/2015 None Full Exam - General 1994 Cardiovascular extremities Overall: no clubbing 06/20/2015 None Full Exam - General 1994 Cardiovascular auscultation of heart Overall: regular rate 06/20/2015 None Full Exam - General 1994 Cardiovascular auscultation of heart Overall: normal heart sounds 06/20/2015 None Full Exam - General 1994 Respiratory respiratory effort/rhythm Overall: no retractions 06/20/2015 None Full Exam - General 1994 Respiratory respiratory effort/rhythm Overall: normal rate 06/20/2015 None Full Exam - General 1994 Respiratory auscultation Overall: breath sounds clear bilaterally 06/20/2015 None Full Exam - General 1994 Neck inspection of neck Overall: normal size 06/20/2015 None Full Exam - General 1994 Neck inspection of neck Overall: normal appearance 06/20/2015 None Full Exam - General 1994 Neck inspection of neck Overall: absence of swelling 06/20/2015 None Full Exam - General 1994 Neck inspection of neck Overall: no masses 06/20/2015 None Full Exam - General 1994 Ears/Nose/Throat lips/teeth/gingiva Overall: benign lips 06/20/2015 None Full Exam - General 1994 Ears/Nose/Throat lips/teeth/gingiva Overall: normal dentition 06/20/2015 None Full Exam - General 1994 Ears/Nose/Throat lips/teeth/gingiva Overall: benign gingiva 06/20/2015 None Full Exam - General 1994 Ears/Nose/Throat lips/teeth/gingiva Overall: no masses 06/20/2015 None Full Exam - General 1994 Constitutional general appearance Development: well developed 06/20/2015 None Full Exam - General 1994 Constitutional general appearance Development: appears stated age 0706/20/2015 None Full Exam - General 1994 Constitutional general appearance Stature/Body Habitus: normal body habitus 06/20/2015 None Full Exam - General 1994 Constitutional general appearance Nourishment: well nourished 06/20/2015 None Full Exam - General 1994 Constitutional general appearance Evidence of Distress: in no acute distress 06/20/2015 None Full Exam - General 1994 Constitutional general appearance Hygiene/Attention to Grooming: good hygiene 06/20/2015 None Full Exam - General 1994 Constitutional general appearance Hygiene/Attention to Grooming: normal grooming 06/20/2015 None Procedures Procedure Codes Date TRIAMCINOLONE ACET INJ NOS CPT-4: J3301 08/27/2017 TRIAMCINOLONE ACET INJ NOS CPT-4: J3301 02/06/2017 Vital Signs Date Vital 08/27/2017 Blood Pressure 1: 152/90 Code : 8480-6 BMI: 41.3 Code : 85415-5 Heart Rate 1 : 84 bpm Height: 5'4" SpO2: 95% Weight: 240 lbs 8 oz 02/06/2017 Blood Pressure 1: 126/74 Code : 8480-6 BMI: 37.8 Code : 20598-4 Heart Rate 1 : 74 bpm Height: 5'4" SpO2: 98% Weight: 220 lbs 03/07/2016 Blood Pressure 1: 132/76 Code : 8480-6 BMI: 38.3 Code : 27891-0 Heart Rate 1 : 84 bpm Height: 5'4" SpO2: 98% Weight: 223 lbs 10/31/2015 Blood Pressure 1: 158/90 Code : 8480-6 Blood Pressure 1: 140/86 Code: 8480-6 BMI: 37.9 Code: 84977-9 Heart Rate 1: 93 bpm Height: 5'4" SpO2: 99% Weight: 221 lbs 07/19/2015 Blood Pressure 1: 156/90 Code : 8480-6 BMI: 38.3 Code : 46206-9 Heart Rate 1 : 77 bpm Height: 5'4" SpO2: 97% Weight: 223 lbs 06/20/2015 Blood Pressure 1: 154/90 Code : 8480-6 BMI: 38.4 Code : 32886-8 Heart Rate 1 : 80 bpm Height: 5'4" Weight: 224 lbs Functional Status No Functional Status data History of Present Illness Symptom Name Status Result Effective Date Notes nasal allergies Location in both nares 08/27/2017 None nasal allergies Onset and Resolution ongoing 08/27/2017 None nasal allergies Onset of Symptom during adulthood 08/27/2017 None nasal allergies Severity mild 08/27/2017 None nasal allergies Pertinent Findings cough 08/27/2017 None nasal allergies Pertinent Findings Denies fever 08/27/2017 None nasal allergies Pertinent Findings hoarseness 08/27/2017 None nasal allergies Frequency of Episodes increasing 08/27/2017 None nasal allergies Significant Medications antihistamines 08/27/2017 None sinus congestion Location on both sides 02/06/2017 None sinus congestion Quality fullness 02/06/2017 None sinus congestion Quality pressure 02/06/2017 None sinus congestion Onset and Resolution sudden in onset 02/06/2017 None sinus congestion Onset of Symptom 4 days ago 02/06/2017 None sinus congestion Frequency of Episodes daily 02/06/2017 None sinus congestion Pertinent Findings cough 02/06/2017 None sinus congestion Pertinent Findings hoarseness 02/06/2017 None cough Location in the throat 02/06/2017 None cough Quality constant 02/06/2017 None cough Quality hacking 02/06/2017 None cough Onset and Resolution sudden in onset 02/06/2017 None cough Onset of Symptom 4 days ago 02/06/2017 None cough Frequency of Episodes daily 02/06/2017 None hypertension Quality chronic 03/07/2016 None hypertension Onset and Resolution ongoing 03/07/2016 None hypertension Onset of Symptom during adulthood 03/07/2016 None hypertension Alleviating Factors medication 03/07/2016 None hypertension Exacerbating Factors stress 03/07/2016 None hypertension Pertinent Findings Denies dizziness 03/07/2016 None hypertension Pertinent Findings Denies dyspnea 03/07/2016 None hypertension Blood Pressure Values patient checking blood pressure at home - did not bring in readings 03/07/2016 None hypertension Quality stable 03/07/2016 None hypertension Pertinent Findings edema 03/07/2016 -normal for her hypertension Quality chronic 10/31/2015 None hypertension Onset and Resolution ongoing 10/31/2015 None hypertension Onset of Symptom during adulthood 10/31/2015 None hypertension Alleviating Factors medication 10/31/2015 None hypertension Exacerbating Factors change in dietary habits 10/31/2015 None hypertension Exacerbating Factors stress 10/31/2015 None hypertension Blood Pressure Values pt checking blood pressure - see scanned document 10/31/2015 None hypertension Pertinent Findings Denies dizziness 10/31/2015 None hypertension Pertinent Findings Denies dyspnea 10/31/2015 None abdominal pain Location in the epigastric area 07/19/2015 - has improved - with the carafate and omeprazole - and stopping the meloxicam has helpd as well - she is currently taking aspirin and has not been taking the coated aspirin - abdominal pain Quality acute 07/19/2015 None abdominal pain Quality burning 07/19/2015 None abdominal pain Onset and Resolution sudden in onset 07/19/2015 None abdominal pain Onset of Symptom 2 months ago 07/19/2015 None abdominal pain Limitation on Activities moderately limits activities 07/19/2015 None abdominal pain Frequency of Episodes increasing 07/19/2015 None abdominal pain Timing of Episodes all day long 07/19/2015 None abdominal pain Alleviating Factors proton pump inhibitor 07/19/2015 None abdominal pain Alleviating Factors medication 07/19/2015 None hypertension Onset and Resolution ongoing 07/19/2015 None hypertension Onset of Symptom during adulthood 07/19/2015 None hypertension Quality chronic 07/19/2015 None hypertension Alleviating Factors medication 07/19/2015 None hypertension Exacerbating Factors stress 07/19/2015 None hypertension Exacerbating Factors change in dietary habits 07/19/2015 None abdominal pain Location in the epigastric area 06/20/2015 None abdominal pain Quality acute 06/20/2015 None abdominal pain Quality burning 06/20/2015 None abdominal pain Onset and Resolution sudden in onset 06/20/2015 None abdominal pain Onset of Symptom 2 months ago 06/20/2015 None abdominal pain Limitation on Activities moderately limits activities 06/20/2015 None abdominal pain Frequency of Episodes increasing 06/20/2015 None abdominal pain Timing of Episodes all day long 06/20/2015 None abdominal pain Alleviating Factors proton pump inhibitor 06/20/2015 None abdominal pain Alleviating Factors medication 06/20/2015 None Advance Directives No Advance Directive data Encounters Encounter Performer Location Codes Date ([id number]) [id number] EST. PATIENT, LEVEL III Diagnosis: Other allergic rhinitis[ICD10: J30.89] Diagnosis: Gastro-esophageal reflux disease without esophagitis[ICD10: K21.9] Maira Inman MD, [facility] CPT-4: 46055 08/27/2017 [id number] EST. PATIENT, LEVEL III Diagnosis: Other allergic rhinitis[ICD10: J30.89] Diagnosis: Cough[ICD10: R05] Amena Inman MD, [facility] CPT-4: 79480 02/06/2017 ([id number]) [id number] EST. PATIENT, LEVEL IV Diagnosis: Essential (primary) hypertension[ICD10: I10] Diagnosis: Morbid (severe) obesity due to excess calories[ICD10: E66.01] [facility] CPT-4: 12822 03/07/2016 ([id number]) 52065 EST. PATIENT, LEVEL III Diagnosis: Essential (primary) hypertension[ICD10: I10] Sharon Inman MD, [facility] CPT-4: 94101 10/31/2015 ([id number]) 77294 EST. PATIENT, LEVEL IV Diagnosis: ESSENTIAL HYPERTENSION[ICD9: 401.9] Diagnosis: GERD (gastroesophageal reflux disease)[ICD9: 530.81] Diagnosis: EDEMA[ICD9: 782.3] [facility] CPT-4: 36388 07/19/2015 ([id number]) OFFICE VISIT, NEW - LEVEL 3 Diagnosis: GERD (gastroesophageal reflux disease)[ICD9: 530.81] Diagnosis: ESSENTIAL HYPERTENSION[ICD9: 401.9] [facility] CPT-4: 70370 06/20/2015 Plan of Care Planned Activity Notes Codes Status Date Appointment: Maira Tapia WPtel: [facility]0 [facility] [address] [place] (15 min) Moderate 08/27/2017 Patient Education: Patient Medication Summary Completed 08/27/2017 Patient Education: Obesity Completed 08/27/2017 Appointment: [phone] [facility] [place] [place] (15 min) Moderate 02/06/2017 Patient Education: Patient Medication Summary Completed 02/06/2017 Patient Education: Patient Medication Summary Completed 03/20/2016 Patient Education: Patient Medication Summary Completed 03/07/2016 Patient Education: Obesity Completed 03/07/2016 Patient Education: Hypertension Completed 03/07/2016 Appointment: [phone] [place] [place] (15 min) Moderate 02/27/2016 Appointment: [phone] [facility] [place] [place] (15 min) Moderate 10/31/2015 Patient Education: Patient Medication Summary Completed 10/31/2015 Patient Education: Hypertension Completed 10/31/2015 Appointment: Sharon In[phone] [facility] [place] [place] (15 min) Moderate 10/19/2015 Appointment: Sharon Inman [phone] [facility] [place] [place] (15 min) Moderate 07/19/2015 Patient Education: Patient Medication Summary Completed 07/19/2015 Appointment: (S) New Patient 06/20/2015 Patient Education: Patient Medication Summary Completed 06/20/2015 Patient Education: Hypertension Completed 06/20/2015 Instructions No Instructions
--- OUTSIDE RECORDS SUMMARY | 2018-09-01 10:38 | XMS REPORT | Continuity of Care Document ---
Author Author [facility] Organization [facility] Address Unknown Phone Unavailable Allergies Active Description Code Type Severity Reaction Onset Reported/Identified Relationship to Patient Clinical Status Yes NKDA NKDA Unknown N/A 04/08/2015 Yes No Known Drug Allergies [id number] Drug Allergy Unknown N/A 04/08/2015 Medications There is no data. Problems Date Dx Coded Attending Type Code Diagnosis Diagnosed By 12/01/2014 NIKOLAS KAUR MD Ot 453.40 12/01/2014 NIKOLAS KAUR MD Ot 782.3 12/01/2014 NIKOLAS KAUR MD Ot V76.12 12/01/2014 NIKOLAS KAUR MD Ot V76.12 01/10/2015 Ot V76.12 01/10/2015 Ot 784.0 01/10/2015 Ot V49.81 01/10/2015 Ot V82.81 01/10/2015 Ot 719.45 01/10/2015 Ot 724.2 01/10/2015 Ot V76.12 01/10/2015 Ot V76.12 01/10/2015 Ot V76.12 01/10/2015 Ot 793.80 01/18/2015 Ot V76.12 01/18/2015 Ot 784.0 01/18/2015 Ot V49.81 01/18/2015 Ot V82.81 01/18/2015 Ot 719.45 01/18/2015 Ot 724.2 01/18/2015 Ot V76.12 01/18/2015 Ot V76.12 01/18/2015 Ot V76.12 01/18/2015 Ot 793.80 04/08/2015 JAYANT DE, BUSHRA Allan Ot V76.51 01/08/2017 Ot V76.12 OTH SCREEN MAMMO-MALIGN NEOPLASM OF RONALD 01/08/2017 Ot V76.12 OTH SCREEN MAMMO-MALIGN NEOPLASM OF RONALD 01/08/2017 Ot 793.80 UNSPEC ABNORMAL MAMMOGRAM 01/09/2017 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 Ot Z12.31 ENCNTR SCREEN MAMMOGRAM FOR MALIGNANT NE 01/16/2017 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 Ot Z12.31 ENCNTR SCREEN MAMMOGRAM FOR MALIGNANT NE 01/13/2018 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 Ot Z12.31 ENCNTR SCREEN MAMMOGRAM FOR MALIGNANT NE 01/14/2018 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 Ot Z12.31 ENCNTR SCREEN MAMMOGRAM FOR MALIGNANT NE 01/17/2018 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 Ot Z12.31 ENCNTR SCREEN MAMMOGRAM FOR MALIGNANT NE 01/17/2018 Ot V76.12 OTH SCREEN MAMMO-MALIGN NEOPLASM OF RONALD 01/17/2018 Ot 793.80 UNSPEC ABNORMAL MAMMOGRAM 01/17/2018 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 Ot Z12.31 ENCNTR SCREEN MAMMOGRAM FOR MALIGNANT NE 01/17/2018 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 Ot Z12.31 ENCNTR SCREEN MAMMOGRAM FOR MALIGNANT NE 01/19/2018 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 Ot Z12.31 ENCNTR SCREEN MAMMOGRAM FOR MALIGNANT NE 04/25/2018 Ot 793.80 UNSPEC ABNORMAL MAMMOGRAM 04/25/2018 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 Results Test Result Range Complete blood count (CBC) with automated white blood cell (WBC) differential - 09/01/18 09:05 Blood leukocytes automated count (number/volume) 7.0 10*3/uL 4.3-11.0 Blood erythrocytes automated count (number/volume) 5.25 10*6/uL 4.35-5.85 Venous blood hemoglobin measurement (mass/volume) 10.7 g/dL 11.5-16.0 Blood hematocrit (volume fraction) 33 % 35-52 Automated erythrocyte mean corpuscular volume 63 [foz_us] 80-99 Automated erythrocyte mean corpuscular hemoglobin (mass per erythrocyte) 20 pg 25-34 Automated erythrocyte mean corpuscular hemoglobin concentration measurement ( mass/volume) 32 g/dL 32-36 Automated erythrocyte distribution width ratio 17.1 % 10.0-14.5 Automated blood platelet count (count/volume) 317 10*3/uL 130-400 Automated blood platelet mean volume measurement 11.7 [foz_us] 7.4-10.4 Automated blood neutrophils/100 leukocytes 61 % 42-75 Automated blood lymphocytes/100 leukocytes 30 % 12-44 Blood monocytes/100 leukocytes 7 % 0-12 Automated blood eosinophils/100 leukocytes 1 % 0-10 Automated blood basophils/100 leukocytes 0 % 0-10 Blood neutrophils automated count (number/volume) 4.3 10*3 1.8-7.8 Blood lymphocytes automated count (number/volume) 2.1 10*3 1.0-4.0 Blood monocytes automated count (number/volume) 0.5 10*3 0.0-1.0 Automated eosinophil count 0.1 10*3/uL 0.0-0.3 Automated blood basophil count (count/volume) 0.0 10*3/uL 0.0-0.1 Whole blood basic metabolic panel - 09/01/18 09:05 Serum or plasma sodium measurement (moles/volume) 138 mmol/L 135-145 Serum or plasma potassium measurement (moles/volume) 4.2 mmol/L 3.6-5.0 Serum or plasma chloride measurement (moles/volume) 106 mmol/L 98-107 Carbon dioxide 22 mmol/L 21-32 Serum or plasma anion gap determination (moles/volume) 10 mmol/L 5-14 Serum or plasma urea nitrogen measurement (mass/volume) 11 mg/dL 7-18 Serum or plasma creatinine measurement (mass/volume) 0.73 mg/dL 0.60-1.30 Serum or plasma urea nitrogen/creatinine mass ratio 15 NRG Serum or plasma creatinine measurement with calculation of estimated glomerular filtration rate > NRG Serum or plasma glucose measurement (mass/volume) 101 mg/dL 70-105 Serum or plasma calcium measurement (mass/volume) 9.7 mg/dL 8.5-10.1 Encounters ACCT No. Visit Date/Time Discharge Status Pt. Type Provider Facility Loc./Unit Complaint [id number] 08/22/2018 13:06:00 08/22/2018 23:59:59 CLS Outpatient CARLOS RAMIREZ DO [facility] CARD ABD PAIN RUQ [id number] 08/21/2018 10:47:00 08/21/2018 23:59:59 CLS Outpatient BINA UMANA MD [facility] RAD RUQ ABD PAIN,NAUSEA [id number] 01/17/2018 09:49:00 01/17/2018 23:59:59 CLS Outpatient GO STRANGE APRN [facility] RAD SCREENING [id number] 01/08/2017 13:59:00 01/08/2017 23:59:59 CLS Outpatient GO STRANGE APRN [facility] RAD SCREENING [id number] 12/08/2015 10:23:00 12/08/2015 23:59:59 CLS Outpatient GO STRANGE APRN [facility] RAD [id number] 04/08/2015 07:04:00 04/08/2015 09:30:00 DIS Outpatient BUSHRA SABA MD [facility] [id number] 04/06/2015 05:46:00 04/06/2015 23:59:59 CLS Outpatient BUSHRA SABA MD [facility] PREOP [id number] 11/29/2014 15:59:00 11/29/2014 23:59:59 CLS Outpatient NIKOLAS KAUR MD [facility] RAD [id number] 11/26/2013 15:11:00 11/26/2013 23:59:59 CLS Outpatient NIKOLAS KUAR MD [facility] RAD [id number] 08/10/2013 13:59:00 08/10/2013 23:59:59 CLS Outpatient NIKOLAS KAUR MD [facility] LAB [id number] 09/01/2018 09:18:00 Document Registration [id number] 11/10/2012 07:40:00 Document Registration [id number] 10/15/2012 09:02:00 Document Registration [id number] 10/01/2011 08:58:00 Document Registration [id number] 09/28/2010 08:59:00 Document Registration [id number] 05/29/2010 10:23:00 Document Registration [id number] 10/25/2009 10:35:00 Document Registration [id number] 09/26/2009 10:57:00 Document Registration [id number] 08/27/2017 08:40:40 08/27/2017 23:59:59 [facility] [id number] 04/09/2015 03:42:10 ACT Document Registration
[2018-09-01] MEDS ORDERED: NEOSTIGMINE 1 MG/ML 5 ML SYRINGE ONE (11:25)
[2018-09-01] MEDS ORDERED: GLYCOPYRROLATE 0.2 MG/ML (ROBINUL) 2 ML VIAL ONE (11:25)
--- NOTE | 2018-09-01 11:30 | Progress Note-Post Operative ---
Post-Operative Progess Note Surgeon (s)/Diaper Machine Tender (s) Surgeon CARLOS RAMIREZ DO Diaper Machine Tender: Dr. Hernandez Pre-Operative Diagnosis ruq abdominal pain, biliary dyskinesia Post-Operative Diagnosis same Procedure & Operative Findings Date of Procedure 09/01/18 Procedure Performed/Findings lap marli c attempted ioc Anesthesia Type gen Estimated Blood Loss Estimated blood loss (mL): min Specimens/Packing Specimens Removed gallbladder CARLOS RAMIREZ DO Sep 01, 2018 11:30
[2018-09-01] MEDS ORDERED: DOCU-143 PO (11:31)
[2018-09-01] MEDS ORDERED: ACHD5005 PO (11:31)
--- NOTE | 2018-09-01 11:32 | Discharge Inst-Simple/Standard ---
Discharge Inst-Standard Discharge Medications New, Converted or Re-Newed RX: RX on Chart Patient Instructions/Follow Up Plan of Care/Instructions/FU: 2 weeks Ellen Activity as Tolerated: No Discharge Diet: Regular Diet Other Inst to Patient Follow up Appt: Make appointment for 2 weeks. Instructions: No lifting greater than 10 pounds. No strenuous activity. May shower in 24 hours, no tub bath or soaking. Use incentive spirometer at home as directed. No Smoking Skin/Wound Care: You have special glue over incisions, it will fall off on its own. Symptoms to Report: Appetite Changes, Extremity Discoloration, Numbness/Tingling, Swelling Increased , Bleeding Excessive, Eyesight Changes, Pain Increased, Urine Color Change, Constipation(Persistent), Fever over 101 degree F, Pain/Pressure in chest, Urinating Difficulty, Cough Up/Vomit Blood, Heart Beat Irreg/Pounding, Pain/ Pressure in jaw, Vaginal Bleeding Increase, Cramps in feet or legs, Lightheadedness, Pain/Pressure in shoulder, Diarrhea(Persistent), Memory Changes Suddenly, Questions/Concerns, Weight gain consecutive days, Dizziness/ Fainting, Nausea/Vomiting, Shortness of Breath, Weight gain over 2 pounds. If eyes or skin turn yellow notify physician. If questions or concerns contact your physician Or seek help at emergency department. CARLOS RAMIREZ DO Sep 01, 2018 11:32
[2018-09-01] MEDS ORDERED: HYDROcodone/APAP 5 MG/325 MG (LORTAB) TAB PO PRN (11:45)
[2018-09-01] MEDS ORDERED: MEPERIDINE (DEMEROL) INJ 50 MG/ML IVP ONE (12:00)
[2018-09-01] MEDS ORDERED: fentaNYL INJECTION 100 MCG/2 ML AMP IVP ONE (12:00)
[2018-09-01] MEDS ORDERED: ONDANSETRON 4 MG/2 ML (SDV) Z0FRAN IVP PRN (12:00)
[2018-09-01] MEDS ORDERED: morphine INJ 10 MG/ML 1ML (SYR OR VIAL) IVP ONE (12:00)
[2018-09-01 12:50] VITALS: BP 123/76
[2018-09-01 13:20] VITALS: BP 123/76
[2018-09-01 13:50] VITALS: BP 117/84
--- NOTE | 2018-09-01 14:29 | Anesthesia-General Post-Op ---
General Patient Condition Mental Status/LOC: Same as Preop Cardiovascular: Satisfactory Nausea/Vomiting: Absent Respiratory: Satisfactory Pain: Controlled Complications: Absent Post Op Complications Complications None Follow Up Care/Instructions Patient Instructions None needed. Anesthesia/Patient Condition Patient Condition Patient was seen after the surgery and she was doing well, no complaints, stable vital signs, no apparent adverse anesthesia problems. KIRK NULL DO Sep 01, 2018 14:29
[2018-09-01 14:49] LABS: BILIRUBIN,URINE NEGATIVE (NEGATIVE); CLARITY,URINE CLEAR; COLOR,URINE YELLOW; GLUCOSE, URINE (UA) NEGATIVE (NEGATIVE); KETONES,URINE NEGATIVE (NEGATIVE); LEUKOCYTE ESTERASE ,URINE 1+ (NEGATIVE); NITRITE,URINE NEGATIVE (NEGATIVE); PH,URINE 6 (5-9); PROTEIN,URINE NEGATIVE (NEGATIVE); UROBILINOGEN,URINE NORMAL (NORMAL)
[2018-09-01 14:55] LABS: BACTERIA,URINE FEW /HPF; WBC,URINE RARE /HPF
--- NOTE | 2018-09-01 23:18 | OPERATIVE REPORT ---
DATE OF SERVICE: 09/01/2018 PREOPERATIVE DIAGNOSIS: Biliary dyskinesia, right upper quadrant abdominal pain. POSTOPERATIVE DIAGNOSIS: Biliary dyskinesia, right upper quadrant abdominal pain. PROCEDURE: Laparoscopic cholecystectomy with attempted intraoperative cholangiogram. SURGEON: Carlos Hughes DO [employer]: Dr. Hernandez, assisted in retraction, dissection and closure. ANESTHESIA: General. ESTIMATED BLOOD LOSS: Minimal. COMPLICATIONS: None. INDICATIONS: The patient is a 53-year-old female with right upper quadrant abdominal pain with findings consistent with biliary dyskinesia. Her ejection fraction was 12%. She was explained risks and benefits of procedure and wished to proceed with procedure. Consent was signed on the chart. DESCRIPTION OF PROCEDURE: The patient was taken to the operating suite. She was prepped and draped in sterile fashion. Surgical pause was performed. Renaldo technique was used to enter the abdomen. An 0 Vicryl suture was placed in a [id number]-[id number] fashion for closure at the end of the case. The balloon trocar was inserted in the abdomen and pneumoperitoneum was achieved. Under direct visualization of the laparoscope, a 5 mm trocar was placed in the subxiphoid region and two 5 mm trocars were placed in the right upper quadrant. The gallbladder was grasped, elevated. There are several adhesions up to the gallbladder, which were able to be dissected down with [place] and cautery. The gallbladder was grasped and elevated and the cystic duct and cystic artery were then dissected around. Clips were placed on the proximal and distal portion of the cystic artery. Distal clip was placed on the cystic duct. The duct was then partially transected. Arrow catheter was attempted to be inserted into the cystic duct multiple times, but was unsuccessful. So therefore cholangiogram was unable to be performed. A clip was placed on the proximal portion of the cystic duct and the duct and the artery were then completely transected. Hook cautery was used to dissect the gallbladder from the gallbladder fossa achieving hemostasis. Once removed, it was placed in an Endobag and removed through the 12 mm trocar site. Copious amounts of irrigation was used to irrigate the abdomen and suctioned. Again, hemostasis was achieved. At this time, the pelvis was inspected. There were multiple adhesions down the pelvis from previous surgery. The abdomen was then desufflated, the trocars were removed. The 0 Vicryl that was placed previously on the [id number]-pz-uemop was sutured down and the skin was then closed using 4-0 Monocryl in a subcuticular fashion. The abdomen was then washed and dried. Skin Affix was placed over the incisions. The patient tolerated procedure well without any complications. She was taken to recovery room in stable condition. Job ID: [id number] DocumentID: [id number] Dictated Date: 09/01/2018 19:51:57 Director Of Strategic Sales Date: 09/01/2018 23:18:07 Dictated By: CARLOS HUGHES DO
== END 2018-09-01 14:20 | disposition home or self-care (01) ==
LOC: SDC 08:43
PROVIDERS: ATTEND Surgery
DX: K81.1 Chronic cholecystitis (principal); K82.8 Other specified diseases of gallbladder; Z11.2 Encounter for screening for other bacterial diseases; I10 Essential (primary) hypertension; K21.9 Gastro-esophageal reflux disease without esophagitis; Z79.899 Other long term (current) drug therapy; Z79.82 Long term (current) use of aspirin
CPT/HCPCS: 36415; 80048; 81000; 85025; 87081; 94664

== ENCOUNTER → 2019-02-06 | Outpatient (CLI) | payer BC ==
[~2019-02-06] MED LIST changes: +ACHD5005 PO; +DOCU-143 PO; +LOSA100T57 PO; -LOSA100T8 PO
--- NOTE | 2019-02-06 13:07 | Diagnostic Imaging Report ---
INDICATION: Routine screening. COMPARISON: 01/17/2018 and 01/08/2017. TECHNIQUE: 2D and 3D bilateral screening mammography was performed with CAD. FINDINGS: Scattered fibroglandular densities are identified bilaterally. Scattered benign calcifications are again noted. Benign nodules in the outer right breast appear stable. No new mass or malignant appearing microcalcifications are seen. The axillae are unremarkable. IMPRESSION: No mammographic features suspicious for malignancy are identified. ACR BI-RADS Category 2: Benign findings. Result letter will be mailed to the patient. Note: At least 10% of breast cancer is not imaged by mammography. Dictated by: Dictated on workstation # [id number]
== END ==
LOC: RAD 10:56
PROVIDERS: ATTEND Nurse Practitioner Family
DX: Z12.31 Encounter for screening mammogram for malignant neoplasm of breast (principal)
CPT/HCPCS: 77067

== ENCOUNTER → 2019-11-10 | Outpatient (CLI) | payer BC ==
--- NOTE | 2019-11-10 13:06 | Diagnostic Imaging Report ---
INDICATION: Postmenopausal screening for osteoporosis. COMPARISON: 10/25/2009 FINDINGS: AP Spine L1-L4: [BMD (g/cm2): 1.061] [T-Score: -1.2] [Z-Score: -1.4] [BMD Previous: 1.116] [BMD % Change: -4.9] LT Hip Neck: [BMD (g/cm2): 0.834] [T-Score: -1.5] [Z-Score: -1.1] LT Hip Total: [BMD (g/cm2):0.889] [T-Score:-0.9] [Z-Score: -1.1] [BMD Previous: 0.876] [BMD % Change: 1.5] RT Hip Neck: [BMD (g/cm2):0.817] [T-Score:-1.6] [Z-Score:-1.3] RT Hip Total: [BMD (g/cm2):0.870] [T-score:-1.1] [Z-Score:-1.2] [BMD Previous:0.902] [BMD % Change:-3.5] *Indicates significant change from prior examination based on 95% confidence level. World Health Organization criteria for BMD interpretation classify patients as Normal (T-score at or above -1.0), Osteopenic (T-score between -1.0 and -2.5) or Osteoporotic (T-score at or below -2.5). LIMITATIONS AND MODIFICATION: None. FRACTURE RISK (FRAX SCORE): The ten year probability of (%): Major Osteoporotic Fracture: [6.3] Hip Fracture: [0.5] IMPRESSION: 1. Osteopenia (Low bone mass). 2. No significant change in bone mineral density since prior examination. 3. See below National Osteoporosis Foundation guidelines on when to potentially initiate pharmacologic therapy. Based on the National Osteoporosis Foundation Guidelines, pharmacologic treatment should be initiated in any of the following, unless clinical conditions suggest otherwise: * Any patient with prior fragility fracture of the hip or vertebrae. A spine fracture indicates 5X risk for subsequent spine fracture and 2X risk for subsequent hip fracture. * Osteoporosis (T-score <-2.5). * Postmenopausal women and men age 50 and older with low bone mass/osteopenia (T-score between -1.0 and -2.5) by DXA and 10-year major osteoporotic fracture greater than 20% or a 10-year probability of hip fracture greater than 3%. These fracture risks are supplied above in the FRAX score, if applicable. * Clinician judgement and/or patient preferences may indicate treatment for people with 10-year fracture probabilities above or below these levels. Dictated by: Dictated on workstation # [id number]
== END ==
LOC: RAD 09:07
PROVIDERS: ATTEND Family Medicine
DX: Z13.820 Encounter for screening for osteoporosis (principal); M81.0 Age-related osteoporosis without current pathological fracture; M85.80 Other specified disorders of bone density and structure, unspecified site; Z78.0 Asymptomatic menopausal state
CPT/HCPCS: 77080

== ENCOUNTER → 2020-04-08 | Outpatient (CLI) | payer BC ==
--- NOTE | 2020-04-08 13:45 | Diagnostic Imaging Report ---
EXAM: Digital mammogram bilateral COMPARISON: 02/06/2019, 01/17/2018, 01/08/2017. There are no current complaints. The current study was also evaluated with a Computer Aided Detection (CAD) system. FINDINGS: There are scattered fibroglandular densities in both breasts which could obscure a lesion. Overall, there does not appear to have been any significant change when compared to the prior exam. No primary or secondary sign of malignancy is noted. IMPRESSION: There is no radiographic evidence for malignancy. ACR category 1 ACR BI-RADS Category 1: Negative. Result letter will be mailed to the patient. Note: At least 10% of breast cancer is not imaged by mammography. Dictated by: Dictated on workstation # [id number]
== END ==
LOC: RAD 09:57
PROVIDERS: ATTEND Nurse Practitioner Family
DX: Z12.31 Encounter for screening mammogram for malignant neoplasm of breast (principal)
CPT/HCPCS: 77063; 77067

== ENCOUNTER → 2020-05-18 | Outpatient (CLI) | payer BC ==
--- NOTE | 2020-05-18 09:42 | Diagnostic Imaging Report ---
EXAMINATION: Magnetic resonance imaging of the right knee without intravenous contrast. DATE: May 18, 2020. COMPARISON: None. INDICATION: 54-year-old female, right knee pain. TECHNIQUE: Multiplanar, multisequence non contrast enhanced MR imaging was accomplished. FINDINGS: MENISCI: There is a full-thickness radially oriented tear involving the posterior root attachment of the medial meniscus with 3 mm medial meniscal extrusion. The lateral meniscus is intact. LIGAMENTS AND TENDONS: The anterior and posterior cruciate ligaments are intact. The medial collateral ligament is intact. The iliotibial band, mid third lateral capsular ligament, fibular collateral ligament, biceps femoris tendon, and conjoined tendon are intact. The quadriceps tendon and patella ligament are intact. JOINT: The articular cartilage surfaces are intact. There is approximately 25% generalized thinning of the cartilage of the medial compartment. The lateral and patellofemoral compartment cartilage is grossly intact. There is a trace to small knee joint effusion without identified intra-articular body or prominent synovitis. BONE: There is minimal edema-like signal in the proximal tibia at the attachment site of the posterior root of the medial meniscus. This is likely mechanically related and associated with the meniscal pathology. There is no acute fracture, bone contusion, or evidence of osteonecrosis. BURSAE AND SOFT TISSUES: There is minimal fluid in the popliteal fossa without sizable Maurer's cyst. There is mild nonspecific prepatellar subcutaneous edema. IMPRESSION: 1. Full-thickness radially oriented tear involving the posterior root attachment of the medial meniscus with 3 mm medial meniscal extrusion. 2. Intact lateral meniscus. 3. Intact anterior and posterior cruciate ligaments. Additional ligaments and tendons are intact. 4. Mild medial compartment osteoarthritis. Trace to small knee joint effusion without identified intra-articular body or prominent synovitis. 5. No acute fracture, bone contusion, or evidence of osteonecrosis. Dictated by: Dictated on workstation # [id number]
== END ==
LOC: RAD 07:33
PROVIDERS: ATTEND Nurse Practitioner
DX: M70.51 Other bursitis of knee, right knee (principal); M23.221 Derangement of posterior horn of medial meniscus due to old tear or injury, right knee; M17.11 Unilateral primary osteoarthritis, right knee
CPT/HCPCS: 73721

== ENCOUNTER → 2021-04-10 | Outpatient (CLI) | payer BC ==
[~2021-04-10] MED LIST changes: +FOLI1TAB33 PO
--- NOTE | 2021-04-10 11:57 | Diagnostic Imaging Report ---
INDICATION: Routine screening. Comparison is made with prior mammogram 04/08/2020 and 02/06/2019. 2-D and 3-D bilateral screening mammography was performed with CAD. Scattered fibroglandular densities are identified bilaterally. Benign nodules in the upper outer right breast are stable and consistent with intraparenchymal lymph nodes. There are scattered benign calcifications throughout both breasts. No spiculated mass or malignant appearing microcalcifications are seen. Axillae are unremarkable. IMPRESSION: BI-RADS Category 2 No mammographic features suspicious for malignancy are identified. ACR BI-RADS Category 2: Benign findings. Result letter will be mailed to the patient. Note: At least 10% of breast cancer is not imaged by mammography. Dictated by: Dictated on workstation # [id number]
== END ==
LOC: RAD 10:33
PROVIDERS: ATTEND Family Medicine
DX: Z12.31 Encounter for screening mammogram for malignant neoplasm of breast (principal)
CPT/HCPCS: 77063; 77067

== ENCOUNTER → 2021-05-22 | Outpatient (CLI) | payer BC | LOC: CARD 09:30 | PROVIDERS: ATTEND Internal Medicine Cardiovascular Disease | DX: I34.0 Nonrheumatic mitral (valve) insufficiency (principal); I10 Essential (primary) hypertension | CPT/HCPCS: 93306 ==

== ENCOUNTER → 2021-08-02 | Outpatient (CLI) | payer BC ==
[~2021-08-02] MED LIST changes: +CATHETER FLUSH 10 ML SYR IV PRN
[2021-08-02 09:02] VITALS: BP 134/80
--- NOTE | 2021-08-02 14:12 | Cardiology Stress Test Report ---
Stress Test Report Date of Procedure/Referring: Date of Procedure: Aug 02, 2021 PCP Misbah Andrade MD Admitting Physician Sharon Inman MD Indications: HTN Baseline Heart Rate: 91 Baseline Blood Pressure: Blood Pressure Systolic: 134 Blood Pressure Diastolic: 80 Vital Signs Date Time Temp Pulse Resp B/P (MAP) Pulse Ox O2 Delivery O2 Flow Rate FiO2 08/02/21 09:02 74 18 134/80 (98) 98 Room Air Baseline Vital Signs Vital Signs Date Time Temp Pulse Resp B/P (MAP) Pulse Ox O2 Delivery O2 Flow Rate FiO2 08/02/21 09:02 74 18 134/80 (98) 98 Room Air Baseline EKG: Baseline EKG: NSR Summary: After explaining the procedure and details to the patient, she signed the consent and was brought to the stress nuclear laboratory. Patient exercised on standard Raji protocol, EKG, heart rate and blood pressure were monitored continuously, resting and stress doses of radio tracer were injected, imaging was acquired and reviewed in the short axis, horizontal long axis and vertical long axis views Patient was able to exercise for a total of 3.30 minutes on Rjai protocol, METs 5.2 Maximum heart rate 158 Maximum blood pressure 199/74 Stress EKG, Minimal nondiagnostic changes Recovery EKG, Return to baseline TID: 1.06 SSS: 3 SDS: 3 EF: 57 Conclusion: 1. Fair exercise tolerance for a total of 3 minutes 30 seconds on standard Raji protocol, 5.2 METS achieving 96% of maximal expected heart rate 2. Appropriate heart rate response to exercise with hypertensive response to e xercise with peak blood pressure 199/74 return to baseline during recovery 3. Nondiagnostic EKG changes with exercise return to baseline during recovery 4. No ischemia or infarction on SPECT images 5. Normal left ventricular size, EF 57% MISBAH ANDRADE MD Aug 02, 2021 14:12
== END ==
LOC: CARD 07:01
PROVIDERS: ATTEND Internal Medicine Cardiovascular Disease
DX: I10 Essential (primary) hypertension (principal)
CPT/HCPCS: 78452; 93017; A9502

== ENCOUNTER → 2022-04-11 | Outpatient (CLI) | payer BC ==
[~2022-04-11] MED LIST changes: -CATHETER FLUSH 10 ML SYR IV PRN; +OMEP20TA56 PO; -OMEP20TA7 PO
--- NOTE | 2022-04-11 14:51 | Diagnostic Imaging Report ---
3 mammogram bilateral screening with CAD. This study was compared to the prior exams as far back as 01/17/2018. At this time there are no current complaints. The current study was also evaluated with a Computer Aided Detection (CAD) system. FINDINGS: The fibroglandular tissue in both breasts is heterogeneously dense. This does limit the sensitivity of this exam. Overall, there does not appear to have been any significant change when compared to the prior study. No primary or secondary sign of malignancy is noted. IMPRESSION: There is no radiographic evidence for malignancy. ACR category 1 ACR BI-RADS Category 1: Negative. Result letter will be mailed to the patient. Note: At least 10% of breast cancer is not imaged by mammography. Dictated by: Dictated on workstation # [id number]
== END ==
LOC: RAD 10:00
PROVIDERS: ATTEND Family Medicine
DX: Z12.31 Encounter for screening mammogram for malignant neoplasm of breast (principal)
CPT/HCPCS: 77063; 77067

== ENCOUNTER → 2022-12-11 | Outpatient (CLI) | payer BC ==
--- NOTE | 2022-12-11 14:23 | Diagnostic Imaging Report ---
INDICATION: Postmenopausal state. COMPARISON: 11/10/2019. FINDINGS: AP Spine L1-L4: [BMD (g/cm2): 1.076] [T-Score: -1.0] [Z-Score: -1.1] [BMD Previous: 1.061] [BMD % Change: 1.4] LT Hip Neck: [BMD (g/cm2): 0.816] [T-Score: -1.6] [Z-Score: -1.2] LT Hip Total: [BMD (g/cm2):0.936] [T-Score:-0.6] [Z-Score: -0.6] [BMD Previous: 0.889] [BMD % Change: 5.3] RT Hip Neck: [BMD (g/cm2):0.829] [T-Score:-1.5] [Z-Score:-1.1] RT Hip Total: [BMD (g/cm2):0.904] [T-score:-0.8] [Z-Score:-0.8] [BMD Previous:0.870] [BMD % Change:3.9]* *Indicates significant change from prior examination based on 95% confidence level. World Health Organization criteria for BMD interpretation classify patients as Normal (T-score at or above -1.0), Osteopenic (T-score between -1.0 and -2.5) or Osteoporotic (T-score at or below -2.5). LIMITATIONS AND MODIFICATION: None. FRACTURE RISK (FRAX SCORE): The ten year probability of (%): Major Osteoporotic Fracture: [7.1] Hip Fracture: [0.6] IMPRESSION: 1. Osteopenia (Low bone mass). 2. Bone mineral density within the left hip has significantly increased since the prior examination. Bone mineral density within the lumbar spine has not significantly changed. 3. See below National Osteoporosis Foundation guidelines on when to potentially initiate pharmacologic therapy. Based on the National Osteoporosis Foundation Guidelines, pharmacologic treatment should be initiated in any of the following, unless clinical conditions suggest otherwise: * Any patient with prior fragility fracture of the hip or vertebrae. A spine fracture indicates 5X risk for subsequent spine fracture and 2X risk for subsequent hip fracture. * Osteoporosis (T-score <-2.5). * Postmenopausal women and men age 50 and older with low bone mass/osteopenia (T-score between -1.0 and -2.5) by DXA and 10-year major osteoporotic fracture greater than 20% or a 10-year probability of hip fracture greater than 3%. These fracture risks are supplied above in the FRAX score, if applicable. * Clinician judgement and/or patient preferences may indicate treatment for people with 10-year fracture probabilities above or below these levels. Dictated by: Dictated on workstation # [id number]
== END ==
LOC: RAD 09:30
PROVIDERS: ATTEND Family Medicine
DX: M85.88 Other specified disorders of bone density and structure, other site (principal); Z78.0 Asymptomatic menopausal state
CPT/HCPCS: 77080

== ENCOUNTER → 2023-04-19 | Outpatient (CLI) | payer BC ==
--- NOTE | 2023-04-19 11:59 | Diagnostic Imaging Report ---
INDICATION: Bilateral 3-D screening mammograms COMPARISON: 04/11/2022 and 04/10/2021 There is mild breast parenchymal density bilaterally. Stable benign calcifications and nodular foci are again noted. There is no evidence of new dominant mass or suspicious calcification. IMPRESSION: Category 2, benign findings. Continued physical examination and annual mammographic followup are recommended. ACR BI-RADS Category 2: Benign findings. Result letter will be mailed to the patient. Note: At least 10% of breast cancer is not imaged by mammography. Dictated by: Dictated on workstation # [id number]
== END ==
LOC: RAD 10:04
PROVIDERS: ATTEND Family Medicine
DX: Z12.31 Encounter for screening mammogram for malignant neoplasm of breast (principal)
CPT/HCPCS: 77063; 77067

== ENCOUNTER → 2023-10-14 | Outpatient (CLI) | payer BC ==
[~2023-10-14] MED LIST changes: -LOSA100T57 PO; +LOSA100T58 PO
== END ==
LOC: CARD 10:29
PROVIDERS: ATTEND Physician Assistant
DX: I11.9 Hypertensive heart disease without heart failure (principal); I34.0 Nonrheumatic mitral (valve) insufficiency
CPT/HCPCS: 93306